=== PATIENT | female | born 1965 | race Caucasian/White ===

== ENCOUNTER → 2017-02-23 | Outpatient (REF) | payer OTHER ==
[~2017-02-23] MED LIST: CYMB1CAP4 PO; LEVO500T3 PO; TIZA2CAP3 PO; TRAM50TA2 PO
== END ==
LOC: M LAB REF 15:47
PROVIDERS: ATTEND Physician Assistant
DX: J02.9 Acute pharyngitis, unspecified (principal)

== ENCOUNTER → 2017-03-01 | Outpatient (REF) | payer BC | LOC: M LAB REF 20:08 | PROVIDERS: ATTEND Physician Assistant | DX: L03.112 Cellulitis of left axilla (principal) ==

== ENCOUNTER 2017-03-02 17:09 | Emergency (ER) | payer BC ==
[~2017-03-02] VITALS: Ht 154.9 cm; Wt 50.9 kg
[2017-03-02] MEDS ORDERED: LEVO500T3 PO (17:26)
[2017-03-02] MEDS ORDERED: CYMB1CAP4 PO (17:26)
[2017-03-02] MEDS ORDERED: TIZA2CAP3 PO (17:26)
[2017-03-02] MEDS ORDERED: TRAM50TA2 PO (17:26)
[2017-03-02] MEDS ORDERED: LIDOCAINE 2% W/EPIN INJ 20ML **PRES FREE INJ ONE (17:45)
[2017-03-02 17:47] LABS: BASO % 0.9 % (0.0-1.0); EOS # 0.1 K/mm3 (0.0-0.50); EOS % 1.1 % (0.0-3.0); LARGE UNSTAINED CELL # 0.1 K/mm3 (0.0-0.4); LARGE UNSTAINED CELL % 2.1 % (0.0-4.0); MEAN CORPUSCULAR HEMOGLOBIN 32.3 pg (27.0-33.0); MEAN CORPUSCULAR VOLUME 95.1 fl (80.0-96.0); MONO # 0.3 K/mm3 (0.0-0.8); MONO % 5.5 % (0.0-5.0); NEUTROPHILS # 3.1 K/mm3 (1.8-7.7); NEUTROPHILS % 56.5 % (36.0-66.0); PLATELET COUNT, AUTOMATED 313 k/mm3 (150-450); RED CELL DISTRIBUTION WIDTH 12.5 % (11.5-14.5); WHITE BLOOD COUNT 5.6 K/mm3 (4.0-10.0)
[2017-03-02 18:12] LABS: ALBUMIN 4.2 GM/DL (3.2-5.2); ALBUMIN/GLOBULIN RATIO 1.14 (1.00-1.93); ALKALINE PHOSPHATASE 77 U/L (45-117); ALT/SGPT 21 U/L (12-78); ANION GAP 11 MEQ/L (8-16); AST/SGOT 13 U/L (15-37); BILIRUBIN,DIRECT 0.1 MG/DL (0.0-0.2); BILIRUBIN,TOTAL 0.6 MG/DL (0.2-1.0); BLOOD UREA NITROGEN 9 MG/DL (7-18); CALCIUM LEVEL 9.5 MG/DL (8.5-10.1); CARBON DIOXIDE LEVEL 25 MEQ/L (21-32); CHLORIDE LEVEL 105 MEQ/L (98-107); CREATININE FOR GFR 0.99 MG/DL (0.55-1.02); FREE T4 1.04 NG/DL (0.76-1.46); GLOMERULAR FILTRATION RATE > 60.0 (>51); GLUCOSE, FASTING 94 MG/DL (70-105); POTASSIUM SERUM 3.4 MEQ/L (3.5-5.1); SODIUM LEVEL 141 MEQ/L (136-145); TOTAL PROTEIN 7.9 GM/DL (6.4-8.2)
[2017-03-02] MEDS ORDERED: ISOVUE-370 76% 100ML VIAL (Q9967) As Ordered ONE (18:14)
[2017-03-02 18:23] LABS: CONTROL LINE HCG INT CTR LINE PRESENT
--- NOTE | 2017-03-02 18:53 | REP ---
CT of the chest with IV contrast, CT pulmonary angiography: There are no emboli in the pulmonary trunk or central pulmonary arteries. There are no emboli in the pulmonary lobe for segment branches. There are no infiltrates, effusions, nodules or masses. There is no mediastinal, hilar or axillary lymphadenopathy. The thoracic aorta is unremarkable. Cardiac size is normal. The visualized upper abdominal contents are unremarkable. Impression: There are no pulmonary emboli. Otherwise, negative CT study of the chest. Signed by Carter Aquino MD 03/02/2017 06:45 P
--- NOTE | 2017-03-02 18:55 | REP ---
Chest, single PA view: The lung land are clear. Cardiac size is normal. The keily, mediastinum, and bony thorax are unremarkable. Impression: Negative PA chest. Signed by Carter Aquino MD 03/02/2017 06:47 P
--- NOTE | 2017-03-02 20:02 | ECGEPIP ---
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
--- NOTE | 2017-03-02 20:09 | REP ---
CT of the abdomen and pelvis without IV or bowel contrast: The visualized lung land are unremarkable. The hepatic parenchyma, gallbladder, pancreas and spleen are unremarkable. The adrenals are unremarkable. There is radiopaque contrast in the renal collecting systems bilaterally from the pulmonary artery CT angiography performed earlier today. There is a right renal 13 mm parapelvic cyst. The kidneys are otherwise unremarkable. There is no hydronephrosis. 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 The abdominal aorta is unremarkable. The bowel and mesentery are unremarkable. Pelvis: The uterus is anteverted and unremarkable. There is a Nabothian cyst in the cervix. The adnexa are unremarkable. There is no ascites or adenopathy. The bladder is opacified but otherwise unremarkable. The pelvic bowel loops are unremarkable. Impression: There is no ascites, adenopathy or mass. The renal collecting systems are opacified from the IV contrast for the chest CT earlier today. 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 Otherwise, essentially negative CT of the abdomen and pelvis. Signed by Carter Aquino MD 03/02/2017 08:00 P
[2017-03-02 22:45] VITALS: BP 112/80
--- NOTE | 2017-03-03 07:16 | ECGEPIP ---
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
== END 2017-03-02 22:46 | disposition home or self-care (01) ==
LOC: M ED 17:09
DX: R07.89 Other chest pain (principal); L73.2 Hidradenitis suppurativa; R10.9 Unspecified abdominal pain; I10 Essential (primary) hypertension; Z79.899 Other long term (current) drug therapy; Z88.0 Allergy status to penicillin; Z88.6 Allergy status to analgesic agent; Z88.8 Allergy status to other drugs, medicaments and biological substances; Z88.1 Allergy status to other antibiotic agents
CPT/HCPCS: 10060; 36415; 71010; 71275; 74176; 80048; 80076; 82550; 82553; 83690; 83880; 84439; 84443; 84703; 85025; 87070; 87077; 87186; 87210; 87491; 87591; 93005; 93041; 94760; 99285; Q9967

== ENCOUNTER → 2017-03-07 | Outpatient (REF) | payer BC | LOC: M LAB REF 13:34 | PROVIDERS: ATTEND Family Medicine | DX: Z01.419 Encounter for gynecological examination (general) (routine) without abnormal findings (principal); Z11.51 Encounter for screening for human papillomavirus (HPV) ==

== ENCOUNTER → 2017-06-21 | Outpatient (CLI) | payer OTHER ==
--- NOTE | 2017-07-10 01:44 | ECWPNPC ---
PATIENT NAME: STACY ROMERO : 1965 GENDER: FEMALE VISIT DATE: 06/21/2017 DISCHARGE DATE: 06/21/17 1701 VISIT LOCKED DATE TIME: PHYSICIAN: JOVANI LLANOS RESOURCE: JOVANI LLANOS REASON FOR APPOINTMENT 1. 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 REPORTS PROCEDURES HELP WAS TEMPORARY.LAST PROCEDURE ONE YEAR AGO.REPORTS THAT HER MOBILITY IS BEING AFFECTED AND ITS DIFFICULT TO TRAVEL.RATING PAIN LEVEL VAS9/10.REPORTS EPISODES OF URINARY FREQUENCY AND URGENCY.REPORTING CONSTIPATED STOOL.DENIES RECENT FEVER,ILLNESS OR SUDDEN WEIGHT LOSS.REPORTS FLUCTUATION IN WEIGHT OVER THE PAST TWO YEARS.STATES SHE HAS NO APPETITE AT TIMES DUE TO STRESS. SCREENING :NO FALLS IN THE PAST YEAR PAIN SCREENING: PATIENT HAS A COMPLAINT OF ACUTE OR CHRONIC PAIN :YES CURRENT MEDICATIONS TAKING TRAMADOL HCL 50 MG TABLET 1 TABLET NEEDED ORALLY THREE TIMES DAILY NEEDED TAKING NORTRIPTYLINE HCL 25 MG CAPSULE 1 CAPSULE ORALLY BEFORE BEDTIME PRN TAKING TIZANIDINE HCL 2 MG TABLET 1-2 TABLET ORALLY BEFORE BEDTIME PRN TAKING MULTI FOR HER - CAPSULE 1 CAP ORALLY DAILY DISCONTINUED VITAMIN A 1 CAPSULE 1 CAPSULE WITH FOOD OR MILK ORALLY ONCE A DAY DISCONTINUED VITAMIN E 1 CAPSULE 1 CAPSULE ORALLY ONCE A DAY DISCONTINUED VITAMIN C 1 TABLET 1 TABLET ORALLY ONCE A DAY DISCONTINUED VITAMIN B12 1 TABLET 1 TABLET ORALLY ONCE A DAY DISCONTINUED CALCIUM MAGNESIUM 750 1 TABLET 1 TABLET WITH MEALS ORALLY DAILY DISCONTINUED ACETAMINOPHEN 500 MG TABLET 1-2 TABLET NEEDED ORALLY EVERY 6 HRS MEDICATION LIST REVIEWED AND RECONCILED WITH THE PATIENT PAST MEDICAL HISTORY SPINAL STENOSIS--MODERATE HERNIATED T12- L1, L3-4, L4-5 POSTERIOR DISC BULGE L2-3 RIGHT LOWER RADOCULOPATHY CARPAL TUNNEL CERVICAL RADOCULOPATHY NECK INJURY ANXIETY OCD DEPRESSION HTN RELATED TO CHRONIC PAIN ALLERGIES ASPIRIN: RASH: ALLERGY IBUPROFEN: RASH/HIVES: ALLERGY CLINDAMYCIN HCL: FACIAL SWELLING/DIARRHEA: ALLERGY AUGMENTIN: N/V: SIDE EFFECTS FLEXERIL BUTRANS: BLURRED VISION, CONFUSION, DIZZINESS, SEVERE VOMITTING, SORE THOAT, SHALLOW BREATHING, ASHENED COLOR: ALLERGY NORTRIPTYLINE HCL: HEADHACE-AURA, NAUSEA, LACK OF APPETITE,DIZZY, BLURRED VISION, PHOTOSENSITIVITY, CONFUSION, DIFF. MAKING DECISIONS, FEELING MORE TIRED, DRY MOUTH: ALLERGY SURGICAL HISTORY TUBAL LIGATION 09/2008 BUNIONECTOMY 07/2012 BLEPHEROPLASTY 11/2016 FAMILY HISTORY FATHER: ALIVE 78 YRS, DIAGNOSED WITH DIABETES MOTHER: 69 YRS, DIAGNOSED WITH STROKE, OTHER 2DAUGHTER(S) - HEALTHY. MOTHER--EMPHYSEMA. SOCIAL HISTORY GENERAL: TOBACCO USE ARE YOU A:NEVER SMOKER ALCOHOL SCREENING POINTS0 INTERPRETATIONNEGATIVE RECREATIONAL DRUG USE DRUG USE?NO CAFFEINE CAFFEINE USE?YES HOW OFTEN AND HOW MUCH? 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 DIET: CARBOHYDRATE CONTROLLED, LOW FAT, LOW CHOLESTEROL - BY CHOICE.. EXERCISE: DAILY UNTIL INJURY WITH CORRESPONDING PHYSICAL FITNESS EVIDENT. MARITAL STATUS: SINGLE. PETS: NONE. SPIRITISM [id number] ORIENTAL ORTHODOX LANGUAGE MAORI. EDUCATION HIGH SCHOOL DIPLOMA PER MEDICAL RECORD FROM PCP. LEARNING BARRIERS / SPECIAL NEEDS BARRIERS TO LEARNING?NO HEARING IMPAIRED?NO VISION IMPAIRED?YES :CORRECTIVE LENSES COGNITIVELY IMPAIRED?NO READINESS TO LEARN?YES LEARNING PREFERENCES?YES :DEMONSTRATION/VERBAL INSTRUCTION LEARNING CAPABILITIES PRESENT?YES EMOTIONAL BARRIERS?NO SPECIAL DEVICES?YES :CANE BAR TACKER NEEDED?NO NEW PATIENT PAIN DIARY TODAY'S VISITNOTES PATIENT DESCRIBES PAIN :ACHING, BURNING, HAVE IT ALL THE TIME, TENDER, THROBBING FROM 0-10, WHAT LEVEL IS YOUR PAIN TODAY?9 PAIN CLINIC PFS, CLERGY, PUBLIC HEALTH REFERRALS PFS REFERRAL NEEDED?NO CLERGY REFERRAL NEEDED?NO PUBLIC HEALTH REFERRAL NEEDED?NO HAS THE PATIENT BEEN EDUCATED REGARDING HIS/HER PLAN OF CARE?YES HAS THE PATIENT BEEN EDUCATED REGARDING PAIN, THE RISK FOR PAIN, THE IMPORTANCE OF EFFECTIVE PAIN MANAGEMENT, AND THE PAIN ASSESSMENT PROCESS?YES ADVANCE DIRECTIVES HEALTH CARE PROXY?YES NAME OF HCP DAUGHTER--JUAN J CONTACT # FOR HCP [phone] DO YOU HAVE A COPY WITH YOU?NO INSTRUCTED TO BRING IN NEXT APPOINTMENT DO YOU HAVE A DNR?NO WOULD YOU LIKE MORE INFORMATION?NO LIVING WILL?NO WOULD YOU LIKE MORE INFORMATION?NO POWER OF PRODUCT SUPPORT TECHNICIAN?NO WOULD YOU LIKE MORE INFORMATION?NO OCCUP EXPOSURE: OTHER INDUSTRY - NONE KNOWN.. DOMESTIC VIOLENCE DO YOU FEEL SAFE IN YOUR ENVIRONMENT?YES HOSPITALIZATION/MAJOR DIAGNOSTIC PROCEDURE DENIES PAST HOSPITALIZATION REVIEW OF SYSTEMS REVIEWED BY: PROVIDER: JOVANI BACA . CONSTITUTIONAL: ANY CHANGE IN YOUR MEDICAL CONDITION? NO . CHILLS NO . FEVER NO . INFECTION: DO YOU HAVE NEW INFECTIONS? NO . DO YOU HAVE HISTORY OF MRSA? NO . MUSCULOSKELETAL: ANY NEW PATTERNS OF PAIN OR NUMBNESS? NO . SYTEMIC LUPUS NO . GASTROENTEROLOGY: ANY NEW CHANGE IN BOWEL CONTROL? NO . BARRETTS ESOPHAGUS NO . CIRRHOSIS NO . HEPATITIS NO . LIVER FAILURE NO . ACID REFLUX NO . UNEXPLAINED WEIGHT LOSS NO . GENITOURINARY: ANY NEW CHANGE IN BLADDER CONTROL? YES, NOT EMPTYING HER BLADDER COMPLETELY,ALSO HAS URGENCY . IS THERE A CHANCE YOU COULD BE ? NO . HEMATOLOGY/LYMPH: DO YOU TAKE ANY BLOOD THINNERS? (FOR EXAMPLE- COUMADIN, PLAVIX, AGGRENOX, PLATEL, PRADAXA, OR XARELTO) NO . WHEN WAS YOUR LAST DOSE? DATE: TIME: . LOW PLATELET COUNT NO . SICKLE CELL DISEASE NO . VON WILLIEBRANDS NO . FACTOR V LEIDEN NO . THALLASEMIA NO . ANEMIA NO . EASY BRUISING NO . NEUROLOGY: HAVE YOU FALLEN IN THE PAST 6 MONTHS? NO . ANY NEW EXTREMITY NUMBNESS OR WEAKNESS? NO . HEAD INJURY NO . DEMENTIA NO . CEREBRAL PALSY NO . MULTIPLE SCLEROSIS NO . DIZZINESS NO . HEADACHE NO . STROKES NO . VERTIGO NO . CARDIOLOGY: DO YOU HAVE A PACEMAKER OR DEFIBRILLATOR? NO . ANGINA NO . HEART ATTACK NO . HEART SURGERY NO . CONGESTIVE HEART FAILURE/FLUID OVERLOAD NO . CHEST PAIN NO . HIGH BLOOD PRESSURE DUE TO CHRONIC PAIN . IRREGULAR HEART BEAT NO . RESPIRATORY: HAVE YOU BEEN SICK IN THE PAST WEEK? NO, COLD SYMPTOMS 2 WEEKS AGO . FEVER NO . FLU LIKE SYMPTOMS? NO . CPAP NO . BYPAP NO . ASTHMA NO . EMPHYSEMA NO . CHRONIC LUNG DISEASES NO . SHORTNESS OF BREATH ON EXERTION NO . COUGH NO . SNORING NO . INTEGUMENTARY: DO YOU HAVE ANY RASHES OR OPEN SORES? NO . ALLERGIC/IMMUNO: ARE YOU ALLERGIC TO SHELLFISH OR IV DYE? NO . ANY NEW ALLERGIES? NO . PSYCHIATRIC: DO YOU HAVE THOUGHTS OF HURTING YOURSELF OR SOMEONE ELSE? NO . ARE YOU ABUSED, NEGLECTED, OR IN AN UNSAFE ENVIRONMENT? NO . ENDOCRINOLOGY: ARE YOU DIABETIC? NO . THYROID DISORDER NO . OTHER: DO YOU NEED ANY PRESCRIPTIONS? NO . IF YES, PLEASE LIST: ____ . ANY NEW PROBLEMS WITH YOUR MEDICATIONS? NO . WHEN DID YOU LAST EAT? ____ . WHEN DID YOU LAST DRINK? ____ . WHAT DID YOU LAST DRINK? ____ . NAME OF PERSON DRIVING YOU HOME? ____ . DO YOU HAVE ANY OTHER QUESTIONS OR CONCERNS YES, PAIN MEDS ARE NOT EFFECTIVE FOR CURRENT PAIN LEVEL . VITAL SIGNS WT 111.4 LBS, HT 61 IN, BMI 21.05 INDEX, BP 126/77 MM HG, HR 103 /MIN, RR 16 /MIN, TEMP 98.3 F, OXYGEN SAT % 100%, SAFE IN ENV? (Y/N) Y, NA INITIALS TL 1357, REVIEWED BY: JUSTIN. EXAMINATION GENERAL EXAMINATION: GENERAL APPEARANCE:NEAT,CLEAN.ALERT,ORIENTED. PSYCHPRESSURED SPEECH.AFFECT IS CONSTRICTED/ANGRY/DEPRESSED/ANXIOUS. NECK:TRACHEA MIDLINE. NO CERVICAL OR SUPRACLAVICULAR LYMPHADENOPATHY NOTED. LUNGS:LUNG BONILLA ARE CLEAR TO AUSCULTATION BILATERALLY. GOOD MOVEMENT OF AIR. HEART:S1, S2 IN A REGULAR RATE AND RHYTHM. NO SIGNIFICANT MURMURS, RUBS OR GALLOPS NOTED. MUSCULOSKELETAL:MUSCLE STRENGTH TESTING 2/5 BILATERAL LOWER EXTREMITIES, PALPATION: POSITIVE FOR PAIN OVER L/S SPINE. POSITIVE FOR PAIN OVER L/S PARSPINALS. CERVICALMUSCLE STRENGTH TESTING 3/5 UPPER EXTREMETIES. EQAUL HEEL PAINTER STRENGTH BILATERAL HANDS. , POSITIVE FOR PAIN WITH PALPATION OF CERVICAL SPINE. POSITIVE FOR PAIN WITH PALPATION OF CERVICAL PARASPINALS. . NEUROLOGIC EXAM:DTR LEFT LE 3/4 PATELLAR DTR RIGHT LE 1-2/4 PATELLAR. ASSESSMENTS LUMBAGO OF LUMBAR REGION WITH SCIATICA - M54.40 (PRIMARY) TREATMENT LUMBAGO OF LUMBAR REGION WITH SCIATICA NOTES: CONTINUE CURRENT PAIN MEDICATION REGIMEN.BRIEFLY DISCUSSED DCS. PROCEDURES PN WORKMANS' COMP OPINION IN YOUR OPINION, WAS THE INCIDENT THAT THE PATIENT DESCRIBED THE COMPETENT MEDICAL CAUSE OF THIS INJURY/ILLNESS? YES ARE THE PATIENT'S COMPLAINTS CONSISTENT WITH HIS/HER HISTORY OF THE INJURY/ILLNESS? YES IS THE PATIENT'S HISTORY OF THE INJURY/ILLNESS CONSISTENT WITH YOUR OBJECTIVE FINDING? YES WHAT IS THE PERCENTAGE OF TEMPORARY IMPAIRMENT? MODERATE TO MARKED = 66.7% IS THE PATIENT WORKING? NO DOCTOR ON SITE: ROSALINO ABRAHAM-RAMOS, MD PROCEDURE CODES FA211 ESTABILISHED PATIENT [facility] CHARGE DISPOSITION & COMMUNICATION FOLLOW UP 2WK W DR. ABRAHAM ELECTRONICALLY SIGNED BY KEVEN PERDUE ON 07/09/2017 AT 02:04 PM EST DISCLAIMER : THIS IS A VISIT SUMMARY EXTRACTED FROM THE [employer] CHART. IT IS NOT A COPY OF THE [employer] PROGRESS NOTE. BRYON
== END ==
LOC: M PAIN 14:00
PROVIDERS: ATTEND Anesthesiology
DX: G89.29 Other chronic pain (principal); M54.40 Lumbago with sciatica, unspecified side; F41.9 Anxiety disorder, unspecified; F32.9 Major depressive disorder, single episode, unspecified; F42.9 Obsessive-compulsive disorder, unspecified; M51.36 Other intervertebral disc degeneration, lumbar region; Z88.6 Allergy status to analgesic agent; Z88.1 Allergy status to other antibiotic agents; Z88.8 Allergy status to other drugs, medicaments and biological substances

== ENCOUNTER → 2017-07-04 | Outpatient (CLI) | payer OTHER ==
--- NOTE | 2017-07-19 01:55 | ECWPNPC ---
PATIENT NAME: STACY ROMERO : 1965 GENDER: FEMALE VISIT DATE: 07/04/2017 DISCHARGE DATE: 07/04/171846 VISIT LOCKED DATE TIME: PHYSICIAN: ROSALINO ABRAHAM RESOURCE: ROSALINO ABRAHAM REASON FOR APPOINTMENT 1. BACK PAIN HISTORY OF PRESENT ILLNESS HISTORY OF PRESENT ILLNESS: PAIN THE PATIENT DESCRIBES THE PAIN... 51 YEAR OLD PATIENT WITH A HISTORY OF BACK PAIN. PATIENT DESCRIBES THE PAIN ACHING, BURNING, SHARP, STABBING, THROBBING, HAVING IT ALL THE TIME WITH A PAIN SCORE OF 9/10. 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 PATIENT WAS CLEANING, BENDING, USING REPETITIVE MOTIONS AND LIFTING 3 LBS AT A TIME WHEN THE INCIDENT HAPPENED. PATIENT REPORTS HAVING SEVERE LOW BACK PAIN ON THIS DAY SO SHE LEFT AND THE NEXT DAY SHE VISITED HER PRIMARY CARE PHYSICIAN DEION TALLEY. HER PRIMARY TOOK HER OUT OF WORK FOR 1 WEEK. ON 01/26/2015 PATIENT WAS PUT ON LIGHT DUTY AT WORK. PATIENTS LAST DAY OF WORK WAS 06/02/2015. PATIENT HAS BEEN SEEN AT [facility], [place], AND DR. HURTADO PREVIOUSLY. PATIENT HAS TRIED PHYSICAL THERAPY IN THE PAST AND STATES THAT IT DOES NOT WORK FOR HER AND CAUSED HER MORE PAIN. PATIENT HAS TRIED TRAMADOL IN THE PAST FOR PAIN. PATIENT CANNOT USE NSAID FOR PAIN DUE TO ALLERGY. , PATIENT DENIES UNEXPLAINABLE WEIGHT LOSS, FEVER, CHILLS, NEW CHANGES ON HER URINARY OR BOWEL CONTROL. FALL RISK SCREENING: SCREENING :NO FALLS IN THE PAST YEAR CURRENT MEDICATIONS TAKING TRAMADOL HCL 50 MG TABLET 1 TABLET NEEDED ORALLY THREE TIMES DAILY NEEDED TAKING TIZANIDINE HCL 2 MG TABLET 1-2 TABLET ORALLY BEFORE BEDTIME PRN TAKING MULTI FOR HER - CAPSULE 1 CAP ORALLY DAILY NOT-TAKING NORTRIPTYLINE HCL 25 MG CAPSULE 1 CAPSULE ORALLY BEFORE BEDTIME PRN MEDICATION LIST REVIEWED AND RECONCILED WITH THE PATIENT PAST MEDICAL HISTORY SPINAL STENOSIS--MODERATE HERNIATED T12- L1, L3-4, L4-5 POSTERIOR DISC BULGE L2-3 RIGHT LOWER RADOCULOPATHY CARPAL TUNNEL CERVICAL RADOCULOPATHY NECK INJURY ANXIETY OCD DEPRESSION HTN RELATED TO CHRONIC PAIN ALLERGIES ASPIRIN: RASH: ALLERGY IBUPROFEN: RASH/HIVES: ALLERGY CLINDAMYCIN HCL: FACIAL SWELLING/DIARRHEA: ALLERGY AUGMENTIN: N/V: SIDE EFFECTS FLEXERIL BUTRANS: BLURRED VISION, CONFUSION, DIZZINESS, SEVERE VOMITTING, SORE THOAT, SHALLOW BREATHING, ASHENED COLOR: ALLERGY NORTRIPTYLINE HCL: HEADHACE-AURA, NAUSEA, LACK OF APPETITE,DIZZY, BLURRED VISION, PHOTOSENSITIVITY, CONFUSION, DIFF. MAKING DECISIONS, FEELING MORE TIRED, DRY MOUTH: ALLERGY NICKEL: RASH: ALLERGY REVIEW OF SYSTEMS REVIEWED BY: PROVIDER: ROSALINO ABRAHAM MD . CONSTITUTIONAL: ANY CHANGE IN YOUR MEDICAL CONDITION? NO . CHILLS NO . FEVER NO . INFECTION: DO YOU HAVE NEW INFECTIONS? NO . DO YOU HAVE HISTORY OF MRSA? NO . MUSCULOSKELETAL: ANY NEW PATTERNS OF PAIN OR NUMBNESS? NO . GASTROENTEROLOGY: ANY NEW CHANGE IN BOWEL CONTROL? NO . GENITOURINARY: ANY NEW CHANGE IN BLADDER CONTROL? NO . IS THERE A CHANCE YOU COULD BE ? NO . HEMATOLOGY/LYMPH: DO YOU TAKE ANY BLOOD THINNERS? (FOR EXAMPLE- COUMADIN, PLAVIX, AGGRENOX, PLATEL, PRADAXA, OR XARELTO) NO . WHEN WAS YOUR LAST DOSE? DATE: TIME: . NEUROLOGY: HAVE YOU FALLEN IN THE PAST 6 MONTHS? NO . ANY NEW EXTREMITY NUMBNESS OR WEAKNESS? NO . CARDIOLOGY: DO YOU HAVE A PACEMAKER OR DEFIBRILLATOR? NO . RESPIRATORY: HAVE YOU BEEN SICK IN THE PAST WEEK? YES COUGH RECOVERING FROM A COLD . FEVER NO . FLU LIKE SYMPTOMS? NO . COUGH NO . INTEGUMENTARY: DO YOU HAVE ANY RASHES OR OPEN SORES? NO . ALLERGIC/IMMUNO: ARE YOU ALLERGIC TO SHELLFISH OR IV DYE? NO . ANY NEW ALLERGIES? NO . PSYCHIATRIC: DO YOU HAVE THOUGHTS OF HURTING YOURSELF OR SOMEONE ELSE? NO . ARE YOU ABUSED, NEGLECTED, OR IN AN UNSAFE ENVIRONMENT? NO . ENDOCRINOLOGY: ARE YOU DIABETIC? NO . OTHER: DO YOU NEED ANY PRESCRIPTIONS? NO . IF YES, PLEASE LIST: ____ . ANY NEW PROBLEMS WITH YOUR MEDICATIONS? NO . WHEN DID YOU LAST EAT? ____ . WHEN DID YOU LAST DRINK? ____ . WHAT DID YOU LAST DRINK? ____ . NAME OF PERSON DRIVING YOU HOME? ____ . DO YOU HAVE ANY OTHER QUESTIONS OR CONCERNS YES PT FEELS THAT TRAMADOL IS INEFFECTIVE FOR HER PAIN LEVEL . VITAL SIGNS WT 111.4 LBS, HT 61 IN, BMI 21.05 INDEX, BP 124/84 MM HG, HR 121 /MIN, RR 16 /MIN, TEMP 98.0 F, OXYGEN SAT % 99%, SAFE IN ENV? (Y/N) YES, NA INITIALS SC 15:30, REVIEWED BY: MARY LOU. EXAMINATION GENERAL EXAMINATION: PATIENT IS ALERT O X 3 AND COOPERATIVE. , LUNGS CLEAR, TO AUSCULTATION. HEART NO MURMURS OR GALLOPS; FACIAL CRANIAL NERVES ARE GROSSLY NORMAL. GOOD SYMMETRY OF FACIAL MUSCLE MOVEMENT. NORMAL VISUAL BONILLA. ABDOMINAL SOFT AND DEPRESSIBLE. PATIENT IS USING A CANE HOLDING OVER HER RIGHT HAND. PATIENT HAS TINGLING DOWN HER LEFT CALF AND THIGH, RADIATION IN BOTH BUTTOCKS, RADIATION IN HER RIGHT LEG IN THE FRONT TO HER KNEECAP. LEFT SIDE FOOT TINGLES AND THIGHS BURN. PATIENT CANNOT FEEL HER LEFT LEG/FOOT. PATIENT STATES THAT SOMETIMES HER FEET FEEL WET AND STICKY. PATIENT REPORTS INCONTINENCE PROBLEMS. PAIN AND TENDERNESS IN THE PARASPINAL MUSCLE GROUP. ANTALGIC WALK. HYPERTROPHY IN HER LOWER BACK. LEFT LEG IS WEAKER THAN HER RIGHT LEG AT EXTENSION/FLEXION. BOTH LEGS ARE WEAK. PATIENT CANNOT EXTEND LEFT ANKLE AGAINST RESISTANCE TO HAND. PATIENT CAN EXTEND HER RIGHT LEG A LITTLE BACK. REFLEXES ARE 2/4 IN BOTH LEGS. PATIENT HAS DIFFICULTY IN THE SUPINE POSITION. STRAIGHT LEG RAISING AT 40 DEGREES. FAVRE TEST POSITIVE AT RIGHT AND LEFT SACROILIAC JOINT. MRI 03/02/17 SHOWS BULGING AT L3-L4, L4-L5 AND ATROPHY CHANGES AT L5-S1. MRI 03/2015 SHOWS SACROILIAC JOINT DYSFUNCTION. 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 ROMERO CASE. WE DISCUSSED MEDICATION MANAGEMENT, PHYSICAL THERAPY, AND INJECTION THERAPY. PATIENT WILL USE TIZANIDINE AT BEDTIME FOR SPASMS, GABAPENTIN 3 TIMES A DAY FOR PAIN, AND PATIENT WILL USE ACETAMINOPHEN NEEDED. WE DISCUSSED AN SIJ AND AN EPIDURAL WITH THE PATIENT FOR LEG PAIN .AFTER DISCUSSING ALTERNATIVES I AM GOING TO REQUEST A LESI AND BOOK THE PATIENT AFTER APPROVED. I WAS WITH THE PATIENT IN THE ROOM OVER 60 MINUTES MORE THAN HALF OF THE TIME WAS DISCUSSING HER CASE AND CLARIFYING ISSUES OF THE PLAN OF CARE. INSTRUCTIONS WERE GIVEN, QUESTIONS WERE ANSWERED, PATIENT REPORTS UNDERSTANDING AND AGREES WITH THE PLAN. PATIENT WILL FOLLOW UP IN 3 WEEKS TO DISCUSS THINGS FURTHER. I, HECTOR LINN, DOCUMENTED THE ABOVE INFORMATION ACTING A SCRIBE FOR DR. ABRAHAM. I HAVE REVIEWED THE ABOVE DOCUMENT, WRITTEN BY HECTOR LINN SCRIBE AND I VERIFY THAT IT IS ACCURATE. OTHERS REFILL TIZANIDINE HCL TABLET, 2 MG, 1 TABLET, ORALLY, BEFORE BEDTIME PRN FOR SPASMS AND PAIN MAYREPEAT IN 4 HRS MDD2, 30 DAY(S), 55, REFILLS 1 START GABAPENTIN CAPSULE, 100 MG, 1 CAP, ORALLY FOR PAIN, THREE TIMES A DAY, 30 DAY(S), 30, REFILLS 1 START ACETAMINOPHEN TABLET, 500 MG, 2 TABLETS NEEDED, ORALLY FOR PAIN, EVERY 6 HRS MDD6, 30 DAY(S), 120, REFILLS 1 PROCEDURES PN WORKMANS' COMP OPINION IN YOUR OPINION, WAS THE INCIDENT THAT THE PATIENT DESCRIBED THE COMPETENT MEDICAL CAUSE OF THIS INJURY/ILLNESS? YES ARE THE PATIENT'S COMPLAINTS CONSISTENT WITH HIS/HER HISTORY OF THE INJURY/ILLNESS? YES IS THE PATIENT'S HISTORY OF THE INJURY/ILLNESS CONSISTENT WITH YOUR OBJECTIVE FINDING? YES WHAT IS THE PERCENTAGE OF TEMPORARY IMPAIRMENT? TOTAL = 100% IS THE PATIENT WORKING? NO DOCTOR ON SITE: ROSALINO LUONG MD PROCEDURE CODES FA211 ESTABILISHED PATIENT [facility] FACILITY CHARGE G8370 ASTHMA PT W SURVEY NOT DOCUM G8730 PAIN ASSESS POS TOOL F/U PLAN DOC G8427 DOC MEDS VERIFIED W/PT OR RE DISPOSITION & COMMUNICATION FOLLOW UP 4 WEEKS ELECTRONICALLY SIGNED BY ROSALINO ABRAHAM MD ON 07/18/2017 AT 08:31 PM EST DISCLAIMER : THIS IS A VISIT SUMMARY EXTRACTED FROM THE [employer] CHART. IT IS NOT A COPY OF THE [employer] PROGRESS NOTE. BRYON
== END ==
LOC: M PAIN 15:45
PROVIDERS: ATTEND Anesthesiology
DX: M51.16 Intervertebral disc disorders with radiculopathy, lumbar region (principal); M54.5 Low back pain; M53.3 Sacrococcygeal disorders, not elsewhere classified; G89.29 Other chronic pain; Z79.891 Long term (current) use of opiate analgesic; Z79.899 Other long term (current) drug therapy; Z88.6 Allergy status to analgesic agent; Z88.1 Allergy status to other antibiotic agents; Z88.8 Allergy status to other drugs, medicaments and biological substances; Z91.048 Other nonmedicinal substance allergy status

== ENCOUNTER → 2017-09-07 | Outpatient (CLI) | payer OTHER | LOC: M PAIN 15:00 | DX: M51.17 Intervertebral disc disorders with radiculopathy, lumbosacral region (principal); M46.1 Sacroiliitis, not elsewhere classified; M54.5 Low back pain; G89.29 Other chronic pain; M48.07 Spinal stenosis, lumbosacral region; F41.9 Anxiety disorder, unspecified; F32.9 Major depressive disorder, single episode, unspecified; I10 Essential (primary) hypertension; Z79.899 Other long term (current) drug therapy; Z88.1 Allergy status to other antibiotic agents; Z88.5 Allergy status to narcotic agent; Z88.6 Allergy status to analgesic agent; Z88.8 Allergy status to other drugs, medicaments and biological substances; Z91.09 Other allergy status, other than to drugs and biological substances | CPT/HCPCS: G0463 ==

== ENCOUNTER → 2017-10-09 | Outpatient (CLI) | payer OTHER | LOC: M PAIN 15:15 | DX: M46.1 Sacroiliitis, not elsewhere classified (principal); M54.5 Low back pain; G89.29 Other chronic pain; M51.17 Intervertebral disc disorders with radiculopathy, lumbosacral region; K59.00 Constipation, unspecified; Z79.899 Other long term (current) drug therapy; Z88.8 Allergy status to other drugs, medicaments and biological substances; Z91.048 Other nonmedicinal substance allergy status | CPT/HCPCS: G0463 ==

== ENCOUNTER → 2017-11-13 | Outpatient (CLI) | payer OTHER | LOC: M PAIN 15:15 | DX: M53.3 Sacrococcygeal disorders, not elsewhere classified (principal); M51.16 Intervertebral disc disorders with radiculopathy, lumbar region; M46.1 Sacroiliitis, not elsewhere classified; F41.9 Anxiety disorder, unspecified; F32.9 Major depressive disorder, single episode, unspecified; I10 Essential (primary) hypertension; Z79.899 Other long term (current) drug therapy; Z88.1 Allergy status to other antibiotic agents; Z88.6 Allergy status to analgesic agent; Z88.8 Allergy status to other drugs, medicaments and biological substances; Z91.09 Other allergy status, other than to drugs and biological substances | CPT/HCPCS: G0463 ==

== ENCOUNTER → 2018-01-22 | Outpatient (CLI) | payer OTHER | LOC: M PAIN 14:00 | DX: M53.3 Sacrococcygeal disorders, not elsewhere classified (principal); M51.16 Intervertebral disc disorders with radiculopathy, lumbar region; M46.1 Sacroiliitis, not elsewhere classified; F41.9 Anxiety disorder, unspecified; F32.9 Major depressive disorder, single episode, unspecified; I10 Essential (primary) hypertension; Z79.899 Other long term (current) drug therapy; Z88.1 Allergy status to other antibiotic agents; Z88.5 Allergy status to narcotic agent; Z88.6 Allergy status to analgesic agent; Z88.8 Allergy status to other drugs, medicaments and biological substances; Z91.09 Other allergy status, other than to drugs and biological substances | CPT/HCPCS: G0463 ==

== ENCOUNTER → 2018-02-11 | Outpatient (CLI) | payer BC ==
[2018-02-11 14:34] LABS: BASO % 0.4 % (0.0-1.0); EOS # 0.1 10^3/uL (0.0-0.50); EOS % 0.9 % (0.0-3.0); HEMOGLOBIN 14.6 g/dl (12.0-15.5); IMMATURE GRANULOCYTE % 0.4 % (0-3.0); LYMPH # 1.1 10^3/uL (1.5-4.5); LYMPH % 13.5 % (24.0-44.0); MEAN CORPUSCULAR HEMOGLOBIN 32.6 pg (27.0-33.0); MEAN CORPUSCULAR HGB CONC 33.2 g/dl (32.0-36.5); MEAN CORPUSCULAR VOLUME 98.2 fl (80.0-96.0); MONO # 0.9 10^3/uL (0.0-0.8); MONO % 12.1 % (0.0-5.0); NEUTROPHILS # 5.6 10^3/uL (1.8-7.7); NEUTROPHILS % 72.7 % (36.0-66.0); PLATELET COUNT, AUTOMATED 263 10^3/uL (150-450); RED BLOOD COUNT 4.48 10^6/uL (4.00-5.40); RED CELL DISTRIBUTION WIDTH 12.7 % (11.5-14.5); WHITE BLOOD COUNT 7.8 10^3/uL (4.0-10.0)
[2018-02-11 15:00] LABS: ALBUMIN 4.1 GM/DL (3.2-5.2); ALBUMIN/GLOBULIN RATIO 1.28 (1.00-1.93); ALKALINE PHOSPHATASE 69 U/L (45-117); ALT/SGPT 31 U/L (12-78); ANION GAP 8 MEQ/L (8-16); AST/SGOT 16 U/L (7-37); BILIRUBIN,TOTAL 0.8 MG/DL (0.2-1.0); BLOOD UREA NITROGEN 10 MG/DL (7-18); CALCIUM LEVEL 9.5 MG/DL (8.5-10.1); CARBON DIOXIDE LEVEL 26 MEQ/L (21-32); CHLORIDE LEVEL 105 MEQ/L (98-107); CREATININE FOR GFR 0.93 MG/DL (0.55-1.30); GLOMERULAR FILTRATION RATE > 60.0 (>51); GLUCOSE, FASTING 108 MG/DL (70-100); POTASSIUM SERUM 4.7 MEQ/L (3.5-5.1); SODIUM LEVEL 139 MEQ/L (136-145); TOTAL PROTEIN 7.3 GM/DL (6.4-8.2)
== END ==
LOC: M WUC 13:17
DX: J01.90 Acute sinusitis, unspecified (principal)
CPT/HCPCS: 80053

== ENCOUNTER → 2018-02-25 | Outpatient (REF) | payer BC, OTHER ==
[2018-02-25 19:10] LABS: APPEARANCE, URINE CLEAR (CLEAR); BACTERIA, URINE AUTO NEGATIVE (NEGATIVE); BILIRUBIN, URINE AUTO NEGATIVE (NEGATIVE); BLOOD, URINE BLOOD NEGATIVE (NEGATIVE); COLOR, URINE COLORLESS (YELLOW); GLUCOSE, URINE (UA) AUTO NEGATIVE (NEGATIVE); KETONE, URINE AUTO NEGATIVE (NEGATIVE); LEUKOCYTE ESTERASE, URINE AUTO NEGATIVE (NEGATIVE); NITRITE, URINE AUTO NEGATIVE (NEGATIVE); PROTEIN, URINE AUTO NEGATIVE (NEGATIVE); RBC, URINE AUTO 0 /HPF (0-3); SPECIFIC GRAVITY URINE AUTO 1.002 (1.002-1.035); SQUAMOUS EPITHELIAL CELL UR AU 0 /HPF (0-6); UROBILINOGEN, URINE AUTO 0.2 mg/dL (0.0-2.0); WBC, URINE AUTO 0 /HPF (0-3)
== END ==
LOC: M SMT 16:55
DX: N32.81 Overactive bladder (principal); R39.9 Unspecified symptoms and signs involving the genitourinary system
CPT/HCPCS: 81001

== ENCOUNTER → 2018-02-27 | Outpatient (CLI) | payer OTHER | LOC: M PAIN 14:15 | DX: M53.3 Sacrococcygeal disorders, not elsewhere classified (principal); M51.16 Intervertebral disc disorders with radiculopathy, lumbar region; M46.1 Sacroiliitis, not elsewhere classified; Z79.899 Other long term (current) drug therapy; Z88.8 Allergy status to other drugs, medicaments and biological substances; Z91.048 Other nonmedicinal substance allergy status | CPT/HCPCS: G0463 ==

== ENCOUNTER → 2018-03-08 | Outpatient (REF) | payer BC, MEDICAID ==
[2018-03-12 15:19] LABS: HPV HYBRID CAPTURE II Negative (Negative)
== END ==
LOC: M LAB REF 13:18
DX: Z01.419 Encounter for gynecological examination (general) (routine) without abnormal findings (principal)
CPT/HCPCS: G0123

== ENCOUNTER → 2018-05-07 | Outpatient (CLI) | payer OTHER | LOC: M PAIN 14:15 | DX: M53.3 Sacrococcygeal disorders, not elsewhere classified (principal); M51.16 Intervertebral disc disorders with radiculopathy, lumbar region; M51.26 Other intervertebral disc displacement, lumbar region; M48.061 Spinal stenosis, lumbar region without neurogenic claudication; F41.9 Anxiety disorder, unspecified; F32.9 Major depressive disorder, single episode, unspecified; Z85.828 Personal history of other malignant neoplasm of skin; R33.9 Retention of urine, unspecified; Z79.899 Other long term (current) drug therapy; Z88.6 Allergy status to analgesic agent; Z88.1 Allergy status to other antibiotic agents; Z88.8 Allergy status to other drugs, medicaments and biological substances; Z91.048 Other nonmedicinal substance allergy status | CPT/HCPCS: G0463 ==

== ENCOUNTER 2018-07-01 08:39 | Day surgery (SDC) | payer BC, MEDICARE ==
[~2018-07-01] VITALS: Ht 154.9 cm; Wt 51.7 kg
[~2018-07-01 08:39] MED LIST changes: +DIPH50TA3 PO; +TIZA2CAP PO; -TIZA2CAP3 PO; +TRAZ-160 PO
[2018-07-01] MEDS ORDERED: NS 1,000 ML IV ONE (08:45)
[2018-07-01] MEDS ORDERED: PROPOFOL 200 MG/20 ML VIAL As Ordered ONE (08:50)
[2018-07-01] MEDS ORDERED: LIDOCAINE 2% INJ 100 MG/5 ML SDV (FOR ANES.) As Ordered ONE (08:50)
--- NOTE | 2018-07-01 10:00 | ROOR ---
Patient Name: Lorena Griggs Procedure Date: 07/01/2018 9:36 AM Date of : 1965 Age: 52 Room: [facility] Gender: Female Note Status: Finalized Procedure: Total Colonoscopy to Cecum Indications: Screening for colorectal malignant neoplasm Providers: Saw Ding MD Referring MD: Verona Hernandez MD Requesting Provider: Medicines: Monitored Anesthesia Care Complications: No immediate complications. Procedure: Pre-Anesthesia Assessment: - The heart rate, respiratory rate, oxygen saturations, blood pressure, adequacy of pulmonary ventilation, and response to care were monitored throughout the procedure. The Colonoscope was introduced through the anus and advanced to the cecum, identified by appendiceal orifice and ileocecal valve. The colonoscopy was performed without difficulty. The patient tolerated the procedure well. The quality of the bowel preparation was excellent. Findings: The perianal and digital rectal examinations were normal. No other significant abnormalities were identified in a careful examination of the remainder of the colon. The exam was otherwise without abnormality on direct and retroflexion views. Impression: - The examination was otherwise normal on direct and retroflexion views. - No specimens collected. - The exam was otherwise normal to the cecum. Recommendation: - Patient has a contact number available for emergencies. The signs and symptoms of potential delayed complications were discussed with the patient. Return to normal activities tomorrow. Written discharge instructions were provided to the patient. - High fiber diet. - Discharge patient to home. - Continue present medications. - Repeat colonoscopy in 10 years for screening purposes. - Return to referring physician. - The findings and recommendations were discussed with the patient's family. Saw Ding MD Saw Ding MD 07/01/2018 10:00:14 AM This report has been signed electronically. Number of Addenda: 0 Note Initiated On: 07/01/2018 9:36 AM Estimated Blood Loss: Estimated blood loss: none.
[2018-07-01 10:15] VITALS: BP 116/78
== END 2018-07-01 10:38 | disposition home or self-care (01) ==
LOC: M OPP 08:39
PROVIDERS: ATTEND Internal Medicine Gastroenterology
DX: Z12.11 Encounter for screening for malignant neoplasm of colon (principal)

== ENCOUNTER 2018-09-30 13:04 | Emergency (ER) | payer BC, MEDICARE, OTHER ==
[~2018-09-30] VITALS: Ht 154.9 cm; Wt 52.2 kg
[2018-09-30] MEDS ORDERED: METOCLOPRAMIDE 10 MG TAB PO ONE (14:30)
--- NOTE | 2018-09-30 14:45 | REP ---
CT Head without contrast HISTORY: Headache COMPARISON: None There is no intraparenchymal hemorrhage, acute infarct, mass or midline shift. The ventricular system is normal in appearance. There is no extra cerebral collection. There is no fracture. The visualized sinuses are clear. IMPRESSION: There is no intracranial lesion. Electronically Signed by Napoleon Jose MD 09/30/2018 02:37 P
[2018-09-30] MEDS ORDERED: ACET500T15 PO (14:54)
[2018-09-30 15:52] VITALS: BP 153/90
== END 2018-09-30 16:11 | disposition home or self-care (01) ==
LOC: M ED 13:04
DX: R51 Headache (principal); G62.9 Polyneuropathy, unspecified; Z79.899 Other long term (current) drug therapy; Z88.0 Allergy status to penicillin; Z88.8 Allergy status to other drugs, medicaments and biological substances; Z88.1 Allergy status to other antibiotic agents; Z91.048 Other nonmedicinal substance allergy status

== ENCOUNTER → 2018-10-11 | Outpatient (CLI) | payer MEDICARE ==
[~2018-10-11] MED LIST changes: +ACET500T15 PO
[2018-10-11 17:23] LABS: ALBUMIN 4.6 GM/DL (3.2-5.2); ALT/SGPT 19 U/L (12-78); BILIRUBIN,DIRECT < 0.1 MG/DL (0.0-0.2); BILIRUBIN,TOTAL 0.5 MG/DL (0.2-1.0); TOTAL PROTEIN 7.5 GM/DL (6.4-8.2)
== END ==
LOC: M WUC 13:35
PROVIDERS: ATTEND Family Medicine
DX: M54.2 Cervicalgia (principal)

== ENCOUNTER 2019-02-21 17:39 | Emergency (ER) | payer MEDICARE, OTHER ==
[~2019-02-21 17:39] MED LIST changes: -TRAZ-160 PO; +TRAZ-252 PO
[2019-02-21 20:22] LABS: BASO % 0.4 % (0.0-1.0); EOS % 0.1 % (0.0-3.0); HEMATOCRIT 38.8 % (36.0-47.0); LYMPH % 9.2 % (24.0-44.0); MEAN CORPUSCULAR HEMOGLOBIN 32.7 pg (27.0-33.0); MEAN CORPUSCULAR HGB CONC 33.5 g/dl (32.0-36.5); MEAN CORPUSCULAR VOLUME 97.5 fl (80.0-96.0); MONO # 0.4 10^3/uL (0.0-0.8); NEUTROPHILS # 8.8 10^3/uL (1.8-7.7); NEUTROPHILS % 85.8 % (36.0-66.0); PLATELET COUNT, AUTOMATED 336 10^3/uL (150-450); RED BLOOD COUNT 3.98 10^6/uL (4.00-5.40); WHITE BLOOD COUNT 10.3 10^3/uL (4.0-10.0)
[2019-02-21 21:05] LABS: BLOOD UREA NITROGEN 8 MG/DL (7-18); CALCIUM LEVEL 10.3 MG/DL (8.5-10.1); CARBON DIOXIDE LEVEL 29 MEQ/L (21-32); CHLORIDE LEVEL 102 MEQ/L (98-107); CK-MB VALUE MASS < 1.0 NG/ML (<3.6); CPK CREATINE PHOSPHOKINASE 41 U/L (26-192); GLOMERULAR FILTRATION RATE > 60.0 (>51); GLUCOSE, FASTING 107 MG/DL (70-100); MAGNESIUM LEVEL 2.3 MG/DL (1.8-2.4); MB/CK RELATIVE INDEX 2.44 (< OR =4); POTASSIUM SERUM 4.3 MEQ/L (3.5-5.1); SODIUM LEVEL 139 MEQ/L (136-145); THYROID STIMULATING HORMONE 0.536 uIU/ML (0.358-3.740); TROPONIN I < 0.02 NG/ML (< 0.10)
[2019-02-21] MEDS ORDERED: ISOVUE-370 76% 100ML VIAL (Q9967) As Ordered ONE (21:24)
--- NOTE | 2019-02-21 22:26 | REPVR ---
EXAM: CT Head Without Contrast EXAM DATE/TIME: 02/21/2019 9:44 PM CLINICAL HISTORY: 53 years old, female; Syncope and collapse; Additional info: Syncope, recent cervical surgery, dysphagia TECHNIQUE: Imaging protocol: Computed tomography images of the head without contrast. Radiation optimization: All CT scans at this facility use at least one of these dose optimization techniques: automated exposure control; mA and/or kV adjustment per patient size (includes targeted exams where dose is matched to clinical indication); or iterative reconstruction. COMPARISON: CT Head without contrast 09/30/2018 2:21 PM FINDINGS: Brain: Normal. No hemorrhage. Unremarkable white matter. No mass effect. Ventricles: Normal. No ventriculomegaly. Bones/joints: Unremarkable. No acute fracture. Sinuses: Visualized sinuses are unremarkable. No fluid levels. Mastoid air cells: Visualized mastoid air cells are well aerated. No mastoid effusion. Soft tissues: Unremarkable. IMPRESSION: Negative noncontrast head CT without change from 09/30/2018. Electronically signed by: Julian Guillory On 02/21/2019 22:26:03 PM
--- NOTE | 2019-02-21 22:31 | REPVR ---
EXAM: CT Cervical Spine Without Contrast EXAM DATE/TIME: 02/21/2019 9:44 PM CLINICAL HISTORY: 53 years old, female; Other: Dysphagia; Prior surgery; Surgery date: <1 month; Surgery type: Cervical fusion 2wks ago; Additional info: Syncope, recent cervical surgery, dysphagia TECHNIQUE: Imaging protocol: Computed tomography images of the cervical spine without contrast. Coronal and sagittal reformatted images were created and reviewed. Radiation optimization: All CT scans at this facility use at least one of these dose optimization techniques: automated exposure control; mA and/or kV adjustment per patient size (includes targeted exams where dose is matched to clinical indication); or iterative reconstruction. COMPARISON: No relevant prior studies available. FINDINGS: Vertebrae: Status post anterior fusion from C5-C7 with interspace fusion devices an increased height of the interspaces. Residual hypertrophic changes of uncovertebral and to a lesser degree apophyseal joints. C2-C3: Minimal degenerative changes of apophyseal joints with no spinal or foraminal stenosis. C3-C4: Slight interspace narrowing slight anterolisthesis with degenerative changes, particularly in the left apophyseal joint with no significant spinal or foraminal stenosis. C4-C5: Slight interspace narrowing slight anterolisthesis with degenerative change of the left apophyseal joint and no significant spinal or foraminal stenosis. C5-C6: Fusion with residual hypertrophic changes and borderline left neural foraminal stenosis. C6-C7: Fusion with residual hypertrophic changes and borderline left neural foraminal stenosis. C7-T1: Early degenerative changes of apophyseal joints, particularly the left with no spinal or foraminal stenosis. Soft tissues: Unremarkable. Prevertebral Space: Slight prevertebral thickening and induration particularly anterior to C6-C7 and C7 consistent with recent surgery. Lungs: Lung apices are normal. IMPRESSION: 1. Status post anterior fusion from C5-C7. There is slight prevertebral thickening, particularly at C6-C7 and C7 consistent with recent surgery. 2. Multilevel degenerative changes with no significant spinal or foraminal stenosis. 3. Otherwise negative CT cervical spine. Electronically signed by: Julian Guillory On 02/21/2019 22:31:23 PM
--- NOTE | 2019-02-21 22:35 | REPVR ---
EXAM: CT Angiography Neck With Contrast EXAM DATE/TIME: 02/21/2019 9:44 PM CLINICAL HISTORY: 53 years old, female; Syncope and collapse; Prior surgery; Surgery date: <1 month; Surgery type: Cervical fusion 2wks ago; Additional info: Syncope, recent cervical surgery, dysphagia TECHNIQUE: Imaging protocol: Axial computed tomographic angiography images of the neck with intravenous contrast using CT angiography protocol. Coronal and sagittal reformatted images were created and reviewed. 3D rendering: MIP reconstructed images were created and reviewed. Radiation optimization: All CT scans at this facility use at least one of these dose optimization techniques: automated exposure control; mA and/or kV adjustment per patient size (includes targeted exams where dose is matched to clinical indication); or iterative reconstruction. Contrast material: ISOVUE 370;Contrast volume: 75 ml;Contrast route: IV; COMPARISON: No relevant prior studies available. FINDINGS: VASCULATURE: Right common carotid artery: Unremarkable. No stenosis. No dissection or occlusion. Right internal carotid artery: Unremarkable extracranial segment. No stenosis. No dissection or occlusion. Right external carotid artery: Unremarkable. No occlusion or stenosis of the origin. Right vertebral artery: The right vertebral artery is smaller than the left consistent with normal variant and appears to only have cerebellar branches intracranially. Left common carotid artery: Unremarkable. No stenosis. No dissection or occlusion. Left internal carotid artery: Unremarkable extracranial segment. No stenosis. No dissection or occlusion. Left external carotid artery: Unremarkable. No occlusion or stenosis of the origin. Left vertebral artery: Left vertebral artery originates directly from the arch. Other vasculature: Patent bilateral posterior communicating arteries, right greater than left. NECK: Bones/joints: Degenerative changes of the cervical spine with anterior fusion from C5-C7. Soft tissues: Normal. No significant soft tissue swelling. IMPRESSION: 1. Status post anterior fusion from C5-C7. 2. Otherwise negative CTA neck. 0% stenosis and no occlusion. COMMENT: Reference per NASCET criteria for degree of stenosis: Mild: less than 50% stenosis. Moderate: 50-69% stenosis. Severe: 70-94% stenosis. Near occlusion: 95-99% stenosis. Electronically signed by: Julian Guillory On 02/21/2019 22:35:17 PM
--- NOTE | 2019-02-21 22:37 | ECGEPIP ---
[facility] - ED Test Date: 2019-02-21 Pat Name: Lorena Griggs Department: Room: - Gender: Female [employer]: navin : 1965 Requested By: Marianela Danielle Order Number: [id number] Reading MD: Thiago Sandoval Measurements Intervals [place] Rate: 80 P: 62 OK: 121 QRS: 69 QRSD: 86 T: 59 QT: 336 QTc: 388 Interpretive Statements SINUS RHYTHM POOR R WAVE PROGRESSION SIMILAR TO 03/02/17 Electronically Signed on 02-21-2019 22:36:41 EDT by Thiago Sandoval
[2019-02-22 02:50] VITALS: BP 118/74
== END 2019-02-22 02:53 | disposition home or self-care (01) ==
LOC: M ED 17:39
DX: R55 Syncope and collapse (principal); G89.18 Other acute postprocedural pain; I77.89 Other specified disorders of arteries and arterioles; F41.1 Generalized anxiety disorder; F42.9 Obsessive-compulsive disorder, unspecified; F32.9 Major depressive disorder, single episode, unspecified; Z88.6 Allergy status to analgesic agent; Z88.1 Allergy status to other antibiotic agents; Z88.0 Allergy status to penicillin; Z88.8 Allergy status to other drugs, medicaments and biological substances; Z91.048 Other nonmedicinal substance allergy status; Z79.899 Other long term (current) drug therapy
CPT/HCPCS: 70450; 70498; 72125; 80048; 82550; 82553; 83735; 84439; 84443; 84484; 85025; 93005; 93041; 94760; 99285; Q9967

== ENCOUNTER → 2019-05-06 | Outpatient (REF) | payer MEDICARE, OTHER ==
[2019-05-09 08:20] LABS: HPV HYBRID CAPTURE II Negative (Negative)
== END ==
LOC: M LAB REF 17:11
PROVIDERS: ATTEND Physician Assistant
DX: Z12.4 Encounter for screening for malignant neoplasm of cervix (principal)
CPT/HCPCS: 87624; G0123

== ENCOUNTER → 2019-05-14 | Outpatient (CLI) | payer MEDICARE ==
[2019-05-14 16:28] LABS: CHOLESTEROL RISK RATIO 5.057 (<5)
== END ==
LOC: M WUC 12:28
PROVIDERS: ATTEND Physician Assistant
DX: Z00.01 Encounter for general adult medical examination with abnormal findings (principal); Z79.899 Other long term (current) drug therapy

== ENCOUNTER 2019-07-23 13:43 | Emergency (ER) | payer MEDICARE ==
[~2019-07-23] VITALS: Ht 157.5 cm; Wt 54.1 kg
[2019-07-23] MEDS ORDERED: NORCO 5/325MG TABLET (BULK FOR ED) PO ONE (15:00)
[2019-07-23 15:03] VITALS: BP 122/79
== END 2019-07-23 15:09 | disposition home or self-care (01) ==
LOC: M ED 13:43
DX: G89.18 Other acute postprocedural pain (principal); M54.2 Cervicalgia; I10 Essential (primary) hypertension; M54.5 Low back pain; R33.9 Retention of urine, unspecified; G90.09 Other idiopathic peripheral autonomic neuropathy; F41.9 Anxiety disorder, unspecified; F33.9 Major depressive disorder, recurrent, unspecified; F42.9 Obsessive-compulsive disorder, unspecified; Z88.0 Allergy status to penicillin; Z88.1 Allergy status to other antibiotic agents; Z88.6 Allergy status to analgesic agent; Z79.891 Long term (current) use of opiate analgesic; Z79.899 Other long term (current) drug therapy

== ENCOUNTER → 2019-12-16 | Outpatient (CLI) | payer MEDICARE, OTHER ==
[2019-12-16 19:32] LABS: ALBUMIN 4.3 GM/DL (3.2-5.2); ALT/SGPT 27 U/L (12-78); BILIRUBIN,TOTAL 0.5 MG/DL (0.2-1.0); BLOOD UREA NITROGEN 19 MG/DL (7-18); CALCIUM LEVEL 9.5 MG/DL (8.5-10.1); CARBON DIOXIDE LEVEL 27 MEQ/L (21-32); CHLORIDE LEVEL 105 MEQ/L (98-107); CHOLESTEROL LEVEL 264 MG/DL (<200); CREATININE FOR GFR 0.92 MG/DL (0.55-1.30); GLOMERULAR FILTRATION RATE > 60.0 (>51); GLUCOSE, FASTING 84 MG/DL (70-100); HDL CHOLESTEROL 63 MG/DL (>40); LDL CHOLESTEROL 178 MG/DL (<100); NON-HDL-C 201 MG/DL; POTASSIUM SERUM 4.3 MEQ/L (3.5-5.1); SODIUM LEVEL 140 MEQ/L (136-145); TOTAL PROTEIN 7.3 GM/DL (6.4-8.2); TRIGLYCERIDES LEVEL 117 MG/DL (<150)
== END ==
LOC: M WUC 11:27
PROVIDERS: ATTEND Physician Assistant
DX: E78.2 Mixed hyperlipidemia (principal)

== ENCOUNTER → 2020-01-23 | Outpatient (CLI) | payer OTHER, MEDICARE ==
[~2020-01-23] MED LIST changes: +HYDR-3713 PO; +SIMV20TA22 PO
--- NOTE | 2020-01-23 11:51 | REP ---
Clinical: Lower back pain. Technique: AP, lateral, bilateral oblique and coned-down views of the lumbosacral spine. Findings: Flexion view suggests less than 3 mm of anterolisthesis at the L4-5 level which returns to normal on neutral and extension views. Alignment is otherwise maintained. No acute fracture / compression injury or subluxation. Mild multilevel degenerative changes include endplate sclerosis with minimal disc space narrowing and facet arthropathy. Impression: Degenerative changes as described above. Electronically Signed by Jason Bean MD 01/23/2020 11:42 A
== END ==
LOC: M WUC 11:24
PROVIDERS: ATTEND Physician Assistant
DX: M51.36 Other intervertebral disc degeneration, lumbar region (principal); M47.26 Other spondylosis with radiculopathy, lumbar region

== ENCOUNTER → 2020-01-30 | Outpatient (CLI) | payer MEDICARE, OTHER ==
[2020-01-30 14:32] LABS: BASO # 0.1 10^3/uL (0.0-0.2); EOS % 0.5 % (0.0-3.0); HEMATOCRIT 43.5 % (36.0-47.0); HEMOGLOBIN 14.3 g/dl (12.0-15.5); LYMPH # 1.9 10^3/uL (1.5-5.0); MEAN CORPUSCULAR HEMOGLOBIN 31.8 pg (27.0-33.0); MEAN CORPUSCULAR HGB CONC 32.9 g/dl (32.0-36.5); MEAN CORPUSCULAR VOLUME 96.7 fl (80.0-96.0); MONO # 0.3 10^3/uL (0.0-0.8); MONO % 5.2 % (0.0-5.0); NEUTROPHILS # 3.6 10^3/uL (1.5-8.5); PLATELET COUNT, AUTOMATED 277 10^3/uL (150-450)
[2020-01-30 15:12] LABS: ALBUMIN 4.3 GM/DL (3.2-5.2); ALT/SGPT 22 U/L (12-78); BILIRUBIN,TOTAL 0.4 MG/DL (0.2-1.0); BLOOD UREA NITROGEN 16 MG/DL (7-18); CALCIUM LEVEL 9.7 MG/DL (8.5-10.1); CARBON DIOXIDE LEVEL 28 MEQ/L (21-32); CHLORIDE LEVEL 104 MEQ/L (98-107); CREATININE FOR GFR 0.88 MG/DL (0.55-1.30); FREE T4 0.92 NG/DL (0.76-1.46); GLOMERULAR FILTRATION RATE > 60.0 (>51); GLUCOSE, FASTING 122 MG/DL (70-100); POTASSIUM SERUM 3.8 MEQ/L (3.5-5.1); SODIUM LEVEL 138 MEQ/L (136-145); THYROID STIMULATING HORMONE 0.619 uIU/ML (0.358-3.740); TOTAL PROTEIN 7.5 GM/DL (6.4-8.2)
== END ==
LOC: M WUC 13:39
PROVIDERS: ATTEND Physician Assistant
DX: R53.83 Other fatigue (principal)

== ENCOUNTER 2020-02-11 15:55 | Emergency (ER) | payer MEDICARE, OTHER ==
[~2020-02-11] VITALS: Ht 154.9 cm; Wt 51.4 kg
[~2020-02-11 15:55] MED LIST changes: -HYDR-3713 PO; -SIMV20TA22 PO
[2020-02-11] MEDS ORDERED: HYDR-3713 PO (16:06)
[2020-02-11] MEDS ORDERED: SIMV20TA22 PO (16:06)
--- NOTE | 2020-02-11 17:18 | REPVR ---
PROCEDURE INFORMATION: Exam: CT Head Without Contrast Exam date and time: 02/11/2020 5:08 PM Age: 54 years old Clinical indication: Pain; Headache; Additional info: Worsening headaches/vision issues TECHNIQUE: Imaging protocol: Computed tomography of the head without contrast. Radiation optimization: All CT scans at this facility use at least one of these dose optimization techniques: automated exposure control; mA and/or kV adjustment per patient size (includes targeted exams where dose is matched to clinical indication); or iterative reconstruction. COMPARISON: CT Head without contrast 02/21/2019 9:33 PM FINDINGS: Brain: No acute intracranial hemorrhage, cerebral edema, or midline shift. Ventricles: No hydrocephalus. Bones/joints: No acute fracture. Sinuses: No acute sinusitis. Mastoid air cells: Visualized mastoid air cells are well aerated. Soft tissues: Unremarkable. IMPRESSION: No acute intracranial abnormality. Electronically signed by: Canelo Lee On 02/11/2020 17:17:44 PM
--- NOTE | 2020-02-11 17:24 | REPVR ---
PROCEDURE INFORMATION: Exam: CT Cervical Spine Without Contrast Exam date and time: 02/11/2020 5:08 PM Age: 54 years old Clinical indication: Neck pain; Additional info: Worsening headaches/vision issues TECHNIQUE: Imaging protocol: Computed tomography images of the cervical spine without contrast. Radiation optimization: All CT scans at this facility use at least one of these dose optimization techniques: automated exposure control; mA and/or kV adjustment per patient size (includes targeted exams where dose is matched to clinical indication); or iterative reconstruction. COMPARISON: CT Spine,cervical w/o contrast 02/21/2019 9:33 PM FINDINGS: Vertebrae: Posterior pedicle screw and hesham fixation is present at C3 through C6. Anterior plate and screw fixation is also noted C5 through C7. The surgical hardware is in place and intact. There is straightening of the normal cervical lordosis. No acute fracture is identified. Discs/Spinal canal/Neural foramina: No significant spinal canal stenosis or neural foraminal narrowing. Soft tissues: Unremarkable. Lungs: Lung apices are normal. IMPRESSION: 1. No acute abnormality. 2. Chronic findings as discussed above. Electronically signed by: Canelo Lee On 02/11/2020 17:24:15 PM
[2020-02-11 18:49] VITALS: BP 152/92
== END 2020-02-11 19:15 | disposition home or self-care (01) ==
LOC: M ED 15:55
DX: R51 Headache (principal); H53.9 Unspecified visual disturbance; H40.9 Unspecified glaucoma; G90.9 Disorder of the autonomic nervous system, unspecified; I10 Essential (primary) hypertension; M54.5 Low back pain; M54.2 Cervicalgia; Z88.1 Allergy status to other antibiotic agents; Z88.8 Allergy status to other drugs, medicaments and biological substances; Z79.899 Other long term (current) drug therapy

== ENCOUNTER → 2020-04-12 | Outpatient (REF) | payer MEDICARE ==
[~2020-04-12] MED LIST changes: +HYDR-3713 PO; +SIMV20TA22 PO
[2020-04-12 13:20] LABS: APPEARANCE, URINE CLEAR (CLEAR); BACTERIA, URINE AUTO NEGATIVE (NEGATIVE); BILIRUBIN, URINE AUTO NEGATIVE (NEGATIVE); BLOOD, URINE BLOOD NEGATIVE (NEGATIVE); CALCIUM OXALATE CRYSTALS MODERATE; COLOR, URINE YELLOW (YELLOW); GLUCOSE, URINE (UA) AUTO NEGATIVE (NEGATIVE); KETONE, URINE AUTO NEGATIVE (NEGATIVE); LEUKOCYTE ESTERASE, URINE AUTO NEGATIVE (NEGATIVE); MUCUS, URINE SMALL (NEGATIVE); NITRITE, URINE AUTO NEGATIVE (NEGATIVE); PROTEIN, URINE AUTO NEGATIVE (NEGATIVE); RBC, URINE AUTO 1 /HPF (0-3); SPECIFIC GRAVITY URINE AUTO 1.015 (1.002-1.035); SQUAMOUS EPITHELIAL CELL UR AU 0 /HPF (0-6); UROBILINOGEN, URINE AUTO 0.2 mg/dL (0.0-2.0); WBC, URINE AUTO 4 /HPF (0-3)
== END ==
LOC: M SMT 12:52
PROVIDERS: ATTEND Urology
DX: N32.81 Overactive bladder (principal); Z79.899 Other long term (current) drug therapy

== ENCOUNTER → 2020-05-24 | Outpatient (CLI) | payer MEDICARE ==
--- NOTE | 2020-05-24 18:48 | REP ---
INDICATION: CERVICAL MYELOPATHY, DDD, HX C SPINE FUSION. COMPARISON: CT cervical spine 02/11/2020 TECHNIQUE: Seven views FINDINGS: Anterior fusion with plate and screw fixation with disc spacers from C5 through C7. Disc space narrowing at C4-5 is significant and unchanged posterior element fixation with pedicle screws and arch bars from C3 through C6 also unchanged. Range of motion is limited due to the surgical hardware but there is no instability of the C1-2 relationship or the upper the cervical vertebral levels. Dens and lateral masses align normally on the open mouth view. There is no torticollis. Only the C2-3 and C3-4 foramina are visible on oblique views due to the pedicle screw arch bar confluence. IMPRESSION: 1. Slight reversal of lordosis as on previous CT with anterior and posterior cervical discectomy and fusion as described appearance stable. Hardware intact. 2. No instability with limited range of motion. 3. No significant interval change. <Electronically signed by Layton Pearson > 05/24/20 [id number]
== END ==
LOC: M RAD 17:03
PROVIDERS: ATTEND Neurological Surgery
DX: M50.30 Other cervical disc degeneration, unspecified cervical region (principal); G50.9 Disorder of trigeminal nerve, unspecified

== ENCOUNTER → 2020-10-31 | Outpatient (CLI) | payer MEDICARE ==
[2020-10-31 13:36] LABS: CALCIUM, URINE 9.8 MG/DL; CREATININE, URINE 72.1 MG/DL
[2020-10-31 14:59] LABS: CALCIUM, 24 HOUR URINE 159.2 MG/24HR (42-353); CREATININE 24 HOUR, URINE 1171.6 MG/24HR (600-1800)
== END ==
LOC: M LAB 12:41
PROVIDERS: ATTEND Nurse Practitioner Family
DX: M81.0 Age-related osteoporosis without current pathological fracture (principal)

== ENCOUNTER → 2020-11-23 | Outpatient (CLI) | payer MEDICARE ==
[2020-11-23 17:30] LABS: ALT/SGPT 26 U/L (12-78); BLOOD UREA NITROGEN 14 MG/DL (7-18); CALCIUM LEVEL 10.4 MG/DL (8.5-10.1); CARBON DIOXIDE LEVEL 29 MEQ/L (21-32); CHLORIDE LEVEL 103 MEQ/L (98-107); CREATININE FOR GFR 0.82 MG/DL (0.55-1.30); GLOMERULAR FILTRATION RATE > 60.0 (>51); GLUCOSE, FASTING 104 MG/DL (70-100); POTASSIUM SERUM 4.4 MEQ/L (3.5-5.1); SODIUM LEVEL 139 MEQ/L (136-145)
[2020-11-23 17:31] LABS: ALBUMIN 4.5 GM/DL (3.2-5.2); BILIRUBIN,TOTAL 0.7 MG/DL (0.2-1.0); TOTAL PROTEIN 7.2 GM/DL (6.4-8.2)
[2020-11-23 17:35] LABS: PTH INTACT 31.5 PG/ML (18.5-88.0)
== END ==
LOC: M WUC 11:20
PROVIDERS: ATTEND Nurse Practitioner Family
DX: M81.0 Age-related osteoporosis without current pathological fracture (principal)

== ENCOUNTER → 2021-03-16 | Outpatient (CLI) | payer MEDICARE ==
[2021-03-16 16:30] LABS: ALBUMIN 4.1 GM/DL (3.2-5.2); BILIRUBIN,TOTAL 0.4 MG/DL (0.2-1.0); CALCIUM LEVEL 9.4 MG/DL (8.5-10.1); CREATININE FOR GFR 1.1 MG/DL (0.55-1.30); GLOMERULAR FILTRATION RATE 54.9 (>51); POTASSIUM SERUM 4.1 MEQ/L (3.5-5.1); TOTAL PROTEIN 7.1 GM/DL (6.4-8.2)
[2021-03-16 16:35] LABS: PTH INTACT 49.7 PG/ML (18.5-88.0)
== END ==
LOC: M WUC 14:26
PROVIDERS: ATTEND Nurse Practitioner Family
DX: E83.52 Hypercalcemia (principal)

== ENCOUNTER → 2021-05-06 | Outpatient (CLI) | payer MEDICARE, OTHER, SELFPAY ==
[2021-05-06 14:19] LABS: ALT/SGPT 34 U/L (12-78); BILIRUBIN,TOTAL 0.5 MG/DL (0.2-1.0); BLOOD UREA NITROGEN 11 MG/DL (7-18); CALCIUM LEVEL 9.8 MG/DL (8.5-10.1); CARBON DIOXIDE LEVEL 29 MEQ/L (21-32); CHLORIDE LEVEL 110 MEQ/L (98-107); CHOLESTEROL LEVEL 187 MG/DL (<200); CHOLESTEROL RISK RATIO 2.833 (<5); CREATININE FOR GFR 0.85 MG/DL (0.55-1.30); GLOMERULAR FILTRATION RATE > 60.0 (>51); GLUCOSE, FASTING 100 MG/DL (70-100); HDL CHOLESTEROL 66 MG/DL (>40); LDL CHOLESTEROL 99 MG/DL (<100); NON-HDL-C 121 MG/DL; POTASSIUM SERUM 4.4 MEQ/L (3.5-5.1); SODIUM LEVEL 142 MEQ/L (136-145); TOTAL PROTEIN 6.8 GM/DL (6.4-8.2); TRIGLYCERIDES LEVEL 111 MG/DL (<150)
[2021-05-06 14:26] LABS: TOTAL 25(OH) VITAMIN D 67.4 NG/ML (30.0-100.0)
== END ==
LOC: M WUC 11:26
PROVIDERS: ATTEND Nurse Practitioner Family
DX: Z00.00 Encounter for general adult medical examination without abnormal findings (principal); Z79.899 Other long term (current) drug therapy

== ENCOUNTER → 2021-05-18 | Outpatient (CLI) | payer MEDICARE, OTHER ==
--- NOTE | 2021-05-19 08:16 | REPMRS ---
Patient History The patient states she has not had a clinical breast exam in over a year. Patient is postmenopausal. No known family history of cancer. Patient states no breast complaints today. Patient has signed MRS History Sheet. Digital Woman Screen Mammo: May 18, 2021 - Exam #: [id number] Bilateral CC and MLO view(s) were taken. Technologist: Evangelina Barron Technologist Prior study comparison: May 14, 2020, bilateral digital mammo screening bilat, performed at [facility]. May 13, 2019, bilateral digital mammo screening bilat, performed at [facility]. FINDINGS: The breast tissue is heterogeneously dense. This may lower the sensitivity of mammography. Screening. Digital screening (2D) mammography was performed bilaterally in the CC and MLO projections. Additionally, breast tomosynthesis (3D mammography) was performed bilaterally in the CC and MLO projections. Todays exam was compared to the prior exam/exams. By history, the patient has no complaints of a palpable breast abnormality or other significant breast complaints. The Volpara volumetric breast density category is C, the breasts are heterogenously dense which may obscure small masses. The breasts are unchanged in size and shape. There are no kirt-soft tissue densities or spiculated masses. There is no internal architectural distortion. There are no suspicious kirt-calcific clusters. Skin thickening or nipple retraction is not present. IMPRESSION: BI-RADS Category 2- Benign Findings. There is no evidence of malignant alteration of the breasts. Followup examination recommended in one year. The lifetime Tyrer-Cuzick score is 7.1% This mammogram was read with the assistance of [employer],an FDA approved computer aided detection system for mammography. Due to the density of the breasts, MRI/whole breast screening ultrasound is warranted. Negative x-ray reports should not delay surgical consultation if a dominant or clinically suspicious mass is present. Not all breast cancers can be identified by mammography. Therefore, we recommend that you continue to perform regular breast self-examination and physical examination and then promptly contact your physician of any concerns or changes. Adenosis and dense breasts may obscure an underlying neoplasm. No significant changes when compared with prior studies. Assessment: BI-RADS/ACR category 2 mammogram. Benign Findings. Recommendation Routine screening mammogram of both breasts in 1 year. Electronically Signed By: Matthew Ocasio MD 05/19/21 0816
== END ==
LOC: M WHC 13:16
PROVIDERS: ATTEND Nurse Practitioner Family
DX: Z12.31 Encounter for screening mammogram for malignant neoplasm of breast (principal)

== ENCOUNTER → 2022-03-03 | Outpatient (CLI) | payer MEDICARE ==
[~2022-03-03] MED LIST changes: +LEVO1TAB39 PO; -LEVO500T3 PO
[2022-03-03 13:53] LABS: BASO # 0.1 10^3/uL (0.0-0.2); BASO % 1.1 % (0.0-1.0); EOS % 0.9 % (0.0-3.0); HEMATOCRIT 45.8 % (36.0-47.0); HEMOGLOBIN 14.5 g/dl (12.0-15.5); LYMPH # 1.4 10^3/uL (1.5-5.0); LYMPH % 31.3 % (24.0-44.0); MEAN CORPUSCULAR HEMOGLOBIN 31.5 pg (27.0-33.0); MEAN CORPUSCULAR HGB CONC 31.7 g/dl (32.0-36.5); MEAN CORPUSCULAR VOLUME 99.3 fl (80.0-96.0); MONO # 0.3 10^3/uL (0.0-0.8); MONO % 7.3 % (2.0-8.0); NEUTROPHILS # 2.7 10^3/uL (1.5-8.5); NEUTROPHILS % 59.2 % (36.0-66.0); PLATELET COUNT, AUTOMATED 292 10^3/uL (150-450); RED BLOOD COUNT 4.61 10^6/uL (4.00-5.40); WHITE BLOOD COUNT 4.5 10^3/uL (4.0-10.0)
[2022-03-03 14:23] LABS: ALBUMIN 4.3 GM/DL (3.2-5.2); ALT/SGPT 45 U/L (12-78); BILIRUBIN,TOTAL 0.7 MG/DL (0.2-1.0); BLOOD UREA NITROGEN 8 MG/DL (7-18); CARBON DIOXIDE LEVEL 27 MEQ/L (21-32); CHLORIDE LEVEL 106 MEQ/L (98-107); CREATININE FOR GFR 0.76 MG/DL (0.55-1.30); FREE T4 0.89 NG/DL (0.76-1.46); GLOMERULAR FILTRATION RATE > 60.0 (>51); GLUCOSE, FASTING 97 MG/DL (70-100); POTASSIUM SERUM 4.5 MEQ/L (3.5-5.1); SODIUM LEVEL 138 MEQ/L (136-145); THYROID STIMULATING HORMONE 0.683 uIU/ML (0.358-3.740); TOTAL PROTEIN 7.5 GM/DL (6.4-8.2)
[2022-03-03 14:53] LABS: ERYTHROCYTE SEDIMENTATION RATE 3 mm/hr (0-30)
[2022-03-03 15:08] LABS: TOTAL 25(OH) VITAMIN D 79.4 NG/ML (30.0-100.0)
== END ==
LOC: M PLALAB 11:32
PROVIDERS: ATTEND Nurse Practitioner Family
DX: R53.83 Other fatigue (principal); Z79.899 Other long term (current) drug therapy

== ENCOUNTER → 2022-03-10 | Outpatient (CLI) | payer MEDICARE | LOC: M RAD 08:20 | PROVIDERS: ATTEND Neurological Surgery | DX: G95.9 Disease of spinal cord, unspecified (principal); Z98.1 Arthrodesis status; M50.30 Other cervical disc degeneration, unspecified cervical region; Z96.89 Presence of other specified functional implants ==

== ENCOUNTER → 2022-05-04 | Outpatient (CLI) | payer MEDICARE ==
[2022-05-04 17:43] LABS: BLOOD UREA NITROGEN 13 MG/DL (7-18); CARBON DIOXIDE LEVEL 28 MEQ/L (21-32); CHLORIDE LEVEL 106 MEQ/L (98-107); CREATININE FOR GFR 0.92 MG/DL (0.55-1.30); GLOMERULAR FILTRATION RATE > 60.0 (>51); GLUCOSE, FASTING 93 MG/DL (70-100); POTASSIUM SERUM 4.5 MEQ/L (3.5-5.1); SODIUM LEVEL 141 MEQ/L (136-145)
[2022-05-04 17:44] LABS: ALBUMIN 4.5 GM/DL (3.2-5.2); ALT/SGPT 36 U/L (12-78); BILIRUBIN,TOTAL 0.8 MG/DL (0.2-1.0); CALCIUM LEVEL 9.8 MG/DL (8.5-10.1); CHOLESTEROL LEVEL 199 MG/DL (<200); CHOLESTEROL RISK RATIO 2.726 (<5); HDL CHOLESTEROL 73 MG/DL (>40); LDL CHOLESTEROL 104 MG/DL (<100); NON-HDL-C 126 MG/DL; TOTAL PROTEIN 7.5 GM/DL (6.4-8.2); TRIGLYCERIDES LEVEL 110 MG/DL (<150)
== END ==
LOC: M WUC 11:46
PROVIDERS: ATTEND Nurse Practitioner Family
DX: E78.2 Mixed hyperlipidemia (principal)

== ENCOUNTER → 2022-05-31 | Outpatient (CLI) | payer MEDICARE | LOC: M WHC 15:13 | PROVIDERS: ATTEND Nurse Practitioner Family | DX: Z12.31 Encounter for screening mammogram for malignant neoplasm of breast (principal) ==

== ENCOUNTER → 2022-07-21 | Outpatient (CLI) | payer MEDICARE | LOC: M PLAIMG 15:39 | PROVIDERS: ATTEND Nurse Practitioner Family | DX: R06.02 Shortness of breath (principal) ==

== ENCOUNTER → 2023-05-03 | Outpatient (CLI) | payer MEDICARE ==
[2023-05-03 17:57] LABS: ALBUMIN 4.5 G/DL (3.2-5.2); ALKALINE PHOSPHATASE 97 U/L (46-116); ALT/SGPT 36 U/L (7.0-40); AST/SGOT 24 U/L (<34); BILIRUBIN,TOTAL 0.9 MG/DL (0.3-1.2); BLOOD UREA NITROGEN 16 MG/DL (9-23); CALCIUM LEVEL 10.4 MG/DL (8.5-10.1); CARBON DIOXIDE LEVEL 31 MMOL/L (20-31); CHLORIDE LEVEL 103 MMOL/L (98-107); CHOLESTEROL LEVEL 186 MG/DL (<200); GLOMERULAR FILTRATION RATE > 60.0 (>51); GLUCOSE, FASTING 104 MG/DL (60-100); HDL CHOLESTEROL 61.8 MG/DL (>40); LDL CHOLESTEROL 100.2 MG/DL (<100); NON-HDL-C 124.2 MG/DL; POTASSIUM SERUM 4.5 MMOL/L (3.5-5.1); SODIUM LEVEL 142 MMOL/L (136-145); TOTAL PROTEIN 7.3 G/DL (5.7-8.2); TRIGLYCERIDES LEVEL 120 MG/DL (<150)
== END ==
LOC: M WUC 13:17
PROVIDERS: ATTEND Nurse Practitioner Family
DX: E78.2 Mixed hyperlipidemia (principal)

== ENCOUNTER → 2023-06-06 | Outpatient (CLI) | payer MEDICARE | LOC: M WHC 05-15 13:54 | PROVIDERS: ATTEND Nurse Practitioner Family | DX: Z12.31 Encounter for screening mammogram for malignant neoplasm of breast (principal); N63.21 Unspecified lump in the left breast, upper outer quadrant ==

== ENCOUNTER → 2023-06-11 | Outpatient (CLI) | payer MEDICARE | LOC: M WHC 12:50 | PROVIDERS: ATTEND Nurse Practitioner Family | DX: R92.8 Other abnormal and inconclusive findings on diagnostic imaging of breast (principal) ==

== ENCOUNTER → 2023-09-04 | Outpatient (CLI) | payer MEDICARE | LOC: M WUC 09:40 | PROVIDERS: ATTEND Student in an Organized Health Care Education/Training Program | DX: J01.90 Acute sinusitis, unspecified (principal) ==

== ENCOUNTER → 2023-11-19 | Outpatient (REF) | payer MEDICARE | LOC: M SFHCDERM 17:45 | PROVIDERS: ATTEND Physician Assistant | DX: C44.612 Basal cell carcinoma of skin of right upper limb, including shoulder (principal) ==

== ENCOUNTER → 2024-05-08 | Outpatient (CLI) | payer MEDICARE ==
[2024-05-08 19:14] LABS: ALBUMIN 4.2 G/DL (3.2-5.2); ALKALINE PHOSPHATASE 96 U/L (46-116); ALT/SGPT 29 U/L (7.0-40); AST/SGOT 19 U/L (<34); BILIRUBIN,TOTAL 0.7 MG/DL (0.3-1.2); BLOOD UREA NITROGEN 17 MG/DL (9-23); CALCIUM LEVEL 10.3 MG/DL (8.5-10.1); CARBON DIOXIDE LEVEL 28 MMOL/L (20-31); CHLORIDE LEVEL 109 MMOL/L (98-107); CHOLESTEROL LEVEL 204 MG/DL (<200); CHOLESTEROL RISK RATIO 3.48 (<5); CREATININE FOR GFR 0.81 MG/DL (0.55-1.30); GLOMERULAR FILTRATION RATE > 60.0 (>51); GLUCOSE, FASTING 97 MG/DL (60-100); HDL CHOLESTEROL 58.5 MG/DL (>40); LDL CHOLESTEROL 124.5 MG/DL (<100); NON-HDL-C 145.5 MG/DL; POTASSIUM SERUM 4.5 MMOL/L (3.5-5.1); SODIUM LEVEL 142 MMOL/L (136-145); TOTAL PROTEIN 7.1 G/DL (5.7-8.2); TRIGLYCERIDES LEVEL 105 MG/DL (<150)
== END ==
LOC: M WUC 12:50
PROVIDERS: ATTEND Nurse Practitioner Family
DX: E78.2 Mixed hyperlipidemia (principal)

== ENCOUNTER → 2024-05-21 | Outpatient (CLI) | payer MEDICARE | LOC: M PAIN 13:00 | PROVIDERS: ATTEND Anesthesiology | DX: M96.1 Postlaminectomy syndrome, not elsewhere classified (principal); M54.2 Cervicalgia; M79.10 Myalgia, unspecified site; M79.18 Myalgia, other site; M54.50 Low back pain, unspecified; M54.16 Radiculopathy, lumbar region; M46.06 Spinal enthesopathy, lumbar region; R10.32 Left lower quadrant pain; F41.9 Anxiety disorder, unspecified; F32.A Depression, unspecified; F42.9 Obsessive-compulsive disorder, unspecified; Z79.899 Other long term (current) drug therapy; Z88.1 Allergy status to other antibiotic agents; Z88.6 Allergy status to analgesic agent; Z88.8 Allergy status to other drugs, medicaments and biological substances; Z91.048 Other nonmedicinal substance allergy status ==

== ENCOUNTER → 2024-06-10 | Outpatient (CLI) | payer MEDICARE | LOC: M WHC 14:02 | PROVIDERS: ATTEND Nurse Practitioner Family | DX: Z12.31 Encounter for screening mammogram for malignant neoplasm of breast (principal) ==

== ENCOUNTER → 2024-06-21 | Outpatient (CLI) | payer MEDICARE | LOC: M RAD 08:49 | PROVIDERS: ATTEND Anesthesiology | DX: M54.16 Radiculopathy, lumbar region (principal); M47.816 Spondylosis without myelopathy or radiculopathy, lumbar region; M51.26 Other intervertebral disc displacement, lumbar region; M51.27 Other intervertebral disc displacement, lumbosacral region ==

== ENCOUNTER → 2024-06-26 | Outpatient (CLI) | payer MEDICARE | LOC: M PAIN 16:30 | PROVIDERS: ATTEND Anesthesiology | DX: M54.2 Cervicalgia (principal); M79.10 Myalgia, unspecified site; M79.18 Myalgia, other site; G24.3 Spasmodic torticollis; M96.1 Postlaminectomy syndrome, not elsewhere classified; M54.50 Low back pain, unspecified; M54.16 Radiculopathy, lumbar region; M46.06 Spinal enthesopathy, lumbar region; R10.32 Left lower quadrant pain; F41.9 Anxiety disorder, unspecified; F32.A Depression, unspecified; F42.9 Obsessive-compulsive disorder, unspecified; Z79.899 Other long term (current) drug therapy; Z88.1 Allergy status to other antibiotic agents; Z88.6 Allergy status to analgesic agent; Z88.8 Allergy status to other drugs, medicaments and biological substances; Z91.048 Other nonmedicinal substance allergy status ==

== ENCOUNTER → 2024-08-25 | Outpatient (CLI) | payer MEDICARE ==
[2024-08-25 17:00] LABS: BASO % 0.8 % (0.0-1.0); EOS # 0.1 10^3/uL (0.0-0.5); EOS % 1.2 % (0.0-3.0); HEMATOCRIT 43.5 % (36.0-47.0); LYMPH % 38.8 % (24.0-44.0); MEAN CORPUSCULAR HGB CONC 32.2 g/dl (32.0-36.5); MEAN CORPUSCULAR VOLUME 99.3 fl (80.0-96.0); MONO # 0.3 10^3/uL (0.0-0.8); MONO % 5.1 % (2.0-8.0); NEUTROPHILS # 2.8 10^3/uL (1.5-8.5); NEUTROPHILS % 53.9 % (36.0-66.0); PLATELET COUNT, AUTOMATED 281 10^3/uL (150-450); RED BLOOD COUNT 4.38 10^6/uL (4.00-5.40); WHITE BLOOD COUNT 5.1 10^3/uL (4.0-10.0)
[2024-08-25 17:27] LABS: FREE T4 1.06 NG/DL (0.89-1.76)
[2024-08-25 17:28] LABS: FERRITIN 107.6 NG/ML (7.3-270.7); IRON (FE) 89 UG/DL (50-170); TOTAL IRON BINDING CAPACITY 330 UG/DL (250-425)
[2024-08-25 17:29] LABS: ALBUMIN 4.2 G/DL (3.2-5.2); ALKALINE PHOSPHATASE 94 U/L (35-104); ALT/SGPT 41 U/L (7.0-40); AST/SGOT 25 U/L (<34); BILIRUBIN,TOTAL 0.6 MG/DL (0.3-1.2); BLOOD UREA NITROGEN 17 MG/DL (9-23); CALCIUM LEVEL 10.1 MG/DL (8.5-10.1); CARBON DIOXIDE LEVEL 28 MMOL/L (20-31); CHLORIDE LEVEL 105 MMOL/L (98-107); CREATININE FOR GFR 0.74 MG/DL (0.55-1.30); GLOMERULAR FILTRATION RATE > 60.0 (>51); GLUCOSE, FASTING 146 MG/DL (60-100); POTASSIUM SERUM 4.5 MMOL/L (3.5-5.1); SODIUM LEVEL 139 MMOL/L (136-145); TOTAL PROTEIN 7.4 G/DL (5.7-8.2)
[2024-08-25 17:30] LABS: FOLATE 14.9 NG/ML (>5.4); VITAMIN B12 LEVEL 590 PG/ML (211-911)
== END ==
LOC: M WUC 13:20
PROVIDERS: ATTEND Nurse Practitioner Family
DX: G25.81 Restless legs syndrome (principal); Z79.899 Other long term (current) drug therapy

== ENCOUNTER → 2024-09-19 | Outpatient (CLI) | payer MEDICARE | LOC: M RAD 15:38 | PROVIDERS: ATTEND Student in an Organized Health Care Education/Training Program | DX: M54.12 Radiculopathy, cervical region (principal); M47.812 Spondylosis without myelopathy or radiculopathy, cervical region ==

== ENCOUNTER → 2025-05-08 | Outpatient (CLI) | payer MEDICARE, MEDICAID ==
[2025-05-08 15:38] LABS: ALT/SGPT 22.0 U/L (7.0-40); AST/SGOT 21.0 U/L (<34); CALCIUM LEVEL 10.0 MG/DL (8.5-10.1); CARBON DIOXIDE LEVEL 27.0 MMOL/L (20-31); CHLORIDE LEVEL 106.0 MMOL/L (98-107); CHOLESTEROL LEVEL 174.0 MG/DL (<200); CHOLESTEROL RISK RATIO 3.07 (<5); CREATININE FOR GFR 0.88 MG/DL (0.55-1.30); GLOMERULAR FILTRATION RATE 75.7 (>51); LDL CHOLESTEROL 89.8 MG/DL (<100); NON-HDL-C 117.4 MG/DL; POTASSIUM SERUM 4.4 MMOL/L (3.5-5.1); SODIUM LEVEL 144.0 MMOL/L (136-145); TRIGLYCERIDES LEVEL 138.0 MG/DL (<150)
== END ==
LOC: M WUC 12:32
PROVIDERS: ATTEND Nurse Practitioner Family
DX: E78.2 Mixed hyperlipidemia (principal)

== ENCOUNTER → 2025-06-12 | Outpatient (CLI) | payer MEDICARE, MEDICAID | LOC: M WHC 14:50 | PROVIDERS: ATTEND Nurse Practitioner Family | DX: Z12.31 Encounter for screening mammogram for malignant neoplasm of breast (principal) ==